=== PATIENT | female | born 1975 | race Caucasian/White ===

== ENCOUNTER 2023-10-21 14:22 | Inpatient (IN) | payer OTHER, SELFPAY ==
[2023-10-21] VITALS (14 sets, daily range): BP systolic 96–117; BP diastolic 60–88; BMI 19.7
--- NOTE | 2023-10-21 11:41 | ED.GENMED ---
History of Present Illness
General
Chief Complaint: Cardiac Symptoms
Source: patient
Time Seen by Provider: 10/21/23 11:17
History of Present Illness
History of Present Illness:
47-year-old female brought to the emergency room for [facility] due to palpitations. Patient states she has been experiencing palpitations for at least a week. Patient has a history of Graves' disease and states that she
has been getting her medication but not at the doses that she believes she has been prescribed in the past. She is taking methimazole 10 mg but believes she should be taking at least 30. Her metoprolol is at 25 mg twice daily. She believes that
there should be higher as well. She also states that she has a history of anemia and has not had an iron transfusion which she currently gets as an outpatient. Mildly short of breath with exertion. No chest pain.
Phy Exam
Physical Exam
Physical Exam:
General: Awake, Alert, Oriented X3. No acute distress.
Vitals: unremarkable
Head: Atraumatic
Eyes: Pupils equal, EOMI
Throat: Airway intact, no exudates
Neck: Trachea midline
Lungs: Clear and equal b/l
Heart: Tachycardic, irregular
Abd: Soft, Nontender, No pulsatile mass
Neuro: Nonfocal
Skin: Warm, dry, no rash
Extremities: pulses equal b/l, no edema
Course
Orders/Labs/Results
Orders:
Orders
10/21/23 11:13
Electrocardiogram (*1) Urgent
Reason for Study: Tachycardia
EKG- Treatment ONCE
10/21/23 11:15
Complete Blood Count/With Diff Urgent
Comprehensive Metabolic Panel Urgent
Folate Urgent
Free T4 Urgent
Iron Urgent
TSH Reflex To Free T4 Urgent
Total Iron Binding Urgent
Troponin I Urgent
Vitamin B12 Urgent
10/21/23 11:40
Add On- LAB Urgent
Tests Added?: tsh reflex t4
Metoprolol [Lopressor] 5 mg IV NOW STA
10/21/23 12:23
Type+Screen Urgent
10/21/23 13:42
Blood Bank Products [* Blood Bank Products] Urgent
Blood Bank Products: *Packed RBC Leuko(PRBC's)
Quantity: 1
Transfuse Today: Yes
Reason: Anemia
10/21/23 14:02
Admit/Transfer Patient As Directed
Co-Sign Provider:
Level of Care: Inpatient admission
Assign to:: Telemetry
Physician / Group: dick
Diagnosis: atrial fib with RVR
Reason for Telemetry: Arrhythmia
Date to Stop Telemetry: 10/24/23
Time to Stop Telemetry: 11:00
Reason for Hospitalization: atrial fib with RVR
Expected length of stay greater than two midnights?: Yes
ELOS- Estimated Length of Stay in days: 3
I certify the patient meets the requirements for IP care: Yes
PRN Pain Medication Management As Directed
May give lesser potent ordered pain med per pt: Yes
preference::
Protocol:: Medication orders for pain may be administered in a
manner that supports deferring to patient preference
when the pt is:
- Requesting an ordered lesser potent pain medication.
Least to most potent pain medications are defined
as: acetaminophen < NSAID < tramadol < opioids
(morphine, oxycodone, hydromorphone).
- Requesting a lesser dose of the same medication IF
ORDERED.
- Requesting a less intrusive route of administration
if both routes are prescribed by the provider (PO <
IV).
10/21/23 14:04
Code Status As Directed
Resuscitation Status: Full Code
10/21/23 14:09
0.9% Sodium Chloride 1000 ml [Nss] 1,000 ml IV BOLUS
10/24/23 11:00
DC Protocol for Telemetry ONCE
Abnormal Lab Results
10/21/23 10/21/23
11:15 12:23
RBC 3.45 L 10^6/uL
(4.20-5.40)
Hgb 7.4 L g/dL
(12.0-16.0)
Hct 25.6 L %
(37.0-47.0)
MCV 74.2 L fL
(81.0-99.0)
MCH 21.4 L pg
(27.0-31.0)
MCHC 28.9 L g/dL
(33.0-37.0)
RDW 19.0 H %
(11.5-14.5)
Chloride 109 H mmol/L
(98-107)
BUN 19 H mg/dl
(7-17)
Glucose 137 H mg/dl
(70-99)
Iron 28 L ug/dl
(37-170)
% Saturation 6 L %
(20-50)
TSH (Reflex) < 0.02 L uIU/ml
(0.47-4.68)
Crossmatch IS Only See Detail
10/21/23 11:15
10/21/23 11:15
Vital Signs
Initial and Last Documented VS:
Initial Vital Signs
Pulse Resp Pulse Ox
133 19 100
10/21/23 11:15 10/21/23 11:15 10/21/23 11:15
Last Documented Vital Signs
Temp Pulse Resp BP Pulse Ox
97.9 F 118 19 102/60 100
10/21/23 14:48 10/21/23 16:04 10/21/23 16:04 10/21/23 15:56 10/21/23 16:04
MDM/Problems Addressed
Differential Diagnosis Includes:
atrial fib, hyperthyriodism, symptomatic anemia
MDM/Problems Addressed:
Patient presents with palpitations. She is found to be in A-fib with rapid ventricular response. This was treated beta-blockers. TSH is very low T4 pending at the time of disposition. Hemoglobin 7.4. Combination of hyperthyroidism and anemia
may have precipitated A-fib. Will transfuse a unit of packed red blood cells. No complaints of bloody or black stool. Patient has longstanding history of iron deficiency anemia related to her gastric bypass surgery and poor iron absorption.
Chronic conditions affecting care: HTN and Other (Graves' disease)
*Pulse Oximetry
Patient hypoxic: no
*EKG
Interpreted by ED Provider?: Yes
Interpretation: abnormal
Heart Rate: 120
Rate: tachycardiac
Rhythm: a-fib
[place]: normal axis
Interval: normal interval
QRS Pattern: normal QRS
Ischemia: non-specific ST changes
*Drapery Hanger Interpretation
Rate: tachycardiac
Interpretation: abnormal
Heart Rate: 120
Rhythm: a-fib
*Critical Care Note
Total Time (30-74mins, 75-104mins- exclusive of procedures): 32 min
comment:
Critical care statement: A total of 32 minutes of critical care time was provided for this patient. This includes management of unstable vital signs, evaluation of the patient at bedside, reviewing the patient's pertinent medical records, discussion
with consultants, review of old EKGs and review of pertinent medical records. This time with separate from time utilized to perform the aforementioned documented procedures
Patient Management
Social determinants of health affecting care: Living situation (Incarcerated)
Discussion with other providers: Hospitalist
ED Attending Note
-
Portions of this chart may have been created with voice recognition software.� Occasional wrong word or��sound alike� substitutions may have occurred due to the inherent limitations of voice recognition software.
Discharge Plan
Departure
Patient Disposition: Admit
Date of Disposition: 10/21/23
Time of Disposition: 13:38
Presentation/result/management discussed w/ accepting MD/DO: Hospitalist
Condition: Fair
Discharge Problem:
New onset a-fib, Symptomatic anemia, Hyperthyroidism
Interventions
Interventions:
*Risk Screen - Suicide Last Done: 10/21/23 11:17
*General Assessment Last Done: 10/21/23 11:17
*Neglect/Abuse Screening Last Done: 10/21/23 11:17
ED- Pulmonary Assessment Last Done: 10/21/23 11:27
ED- Cardiac Assessment Last Done: 10/21/23 11:27
[2023-10-21] MEDS: LOPRESSOR 5 MG IV (11:46)
[2023-10-21 11:52] LABS: % Basophils 0.9 % (0-2); % Eosinophils 2.2 % (0-6); % Immature Granulocytes 0.2 % (0-0.5); % Lymphocytes 33.9 % (20.5-51.1); % Monocytes 8.1 % (1.7-9.3); % Neutrophils 54.7 % (42.2-75.2); Absolute Basophils 0.1 10^3/uL (0-0.2); Absolute Eosinophils 0.1 10^3/uL (0-0.7); Absolute Lymphocytes 1.9 10^3/uL (1.2-3.4); Absolute Monocytes 0.5 10^3/uL (0.1-0.6); Hematocrit 25.6 % (37.0-47.0); Hemoglobin 7.4 g/dL (12.0-16.0); Mean Corp Hgb Conc. 28.9 g/dL (33.0-37.0); Mean Corpuscular Hgb 21.4 pg (27.0-31.0); Mean Corpuscular Volume 74.2 fL (81.0-99.0); Mean Platelet Volume 10.3 fL (7.4-10.4); Nucleated Red Blood Cells % 0 %; Platelet Count 164 10^3/uL (130-400); Red Blood Cell Count 3.45 10^6/uL (4.20-5.40); White Blood Cell Count 5.6 10^3/uL (4.8-10.8)
[2023-10-21 11:58] LABS: ALT (SGPT) 15 U/L (0-35); AST (SGOT) 22 U/L (14-36); Albumin 3.9 g/dl (3.5-5.0); Alkaline Phosphatase 93 U/L (38-126); Blood Urea Nitrogen 19 mg/dl (7-17); Carbon Dioxide 23 mmol/L (22-30); Chloride 109 mmol/L (98-107); Glucose 137 mg/dl (70-99); Potassium 4.6 mmol/L (3.5-5.1); Sodium 139 mmol/L (135-145); Total Bilirubin 0.4 mg/dl (0.2-1.3); Total Protein 6.9 g/dl (6.3-8.2); eGFR > 60.00
[2023-10-21 12:08] LABS: Troponin I < 0.012 ng/ml
[2023-10-21 12:14] LABS: Anisocytosis 1+; Normal RBC Morphology No; Polychromasia 1+
[2023-10-21 12:15] LABS: Hypochromasia 2+; Ovalocytes 1+
[2023-10-21 13:23] LABS: TSH Reflex To Free T4 < 0.02 uIU/ml (0.47-4.68)
--- NOTE | 2023-10-21 13:39 | HPS.HSE ---
Addendum entered and electronically signed by Ruthy Vidales MD 10/21/23 15:05:
pt seen and examined independently--agree with COMMERCIAL ENERGY RATER note
GENERAL: chronically ill appearing, cachectic, appearing older than stated age, female in no apparent distress
HEENT: NC/AT
HEART: irreg irreg tachycardic
LUNGS : clear to auscultation bilaterally
ABDOM: soft, nontender, nondistended, + bowel sounds
EXT: no cyanosis, clubbing---3+ LE edema bilaterally
NEUROLOGIC: grossly intact
: did not examine--pt states has IUD to control heavy menses (no bleeding since IUD placed)
palpitations (presenting c/o)--likely due to paroxysmal atrial fib with RVR (confirmed by EKG)--possibly exacerbated by (what she believes is underdosing of meds at the custodial), Graves's disease and hyperthyroid (free T4 is 1.15), and anemia (HGB
7.4)--Received metoprolol, propranolol in ER--Metoprolol continued--apprec Cardiology consult, ECHO in AM
History of Graves' disease--TSH low, free T4 normal--On methimazole
Iron deficiency anemia--HGB 7.4--blood transfusion ordered--added iron, TIBC, %SAT, ferritin, B12, folate--History of iron transfusions in the past--Ferrous sulfate continued--pt denies black or bloody stools, hematemesis, hemoptysis and no menses
since IUD placed
History of bilateral lower extremity edema---at present her legs are swollen--would check US for DVT for completeness--Continue to monitor
DVT prophylaxis--Lovenox sq
CODE STATUS--Full code
Original Note:
Family Physician
-
Family Physician: Facility [facility]. [facility]
Chief Complaint
-
Palpitation
History of Present Illness
47-year-old female with past medical history for A-fib, Graves' disease, iron deficiency anemia, cellulitis, lower extremities edema presented to us with palpitation for 1 week. Patient stated headache dizzy and weakness. Denied any chest pain or
short of breath. Patient denied any fever, chills. Patient denies any abdominal pain, nausea, vomiting, diarrhea. Patient denies any hematemesis, black stool rectal bleeding. Denies dysuria hematuria. Patient used to have heavy menstrual
bleeding,but she has IUD in place.
Patient was noted in A-fib with RVR. Patient received metoprolol and propranolol in ER. Admitting for further management
History of opiates abuse in the past. She last used in September 13
Medical History
Past Medical History
Past Medical History: Reports Other
Additional Past Medical History:
Atrial fibs
Graves' disease
Iron deficiency anemia
Lower extremities edema
Past Surgical History: Reports Other
Additional Past Surgical History:
Gastric bypass
Social History
Tobacco: Non-smoker
Alcohol: Occasional
Drug: Former User
Living: Penitentiary
Family History
Family History: Not pertinent
Allergies / Home Medications
Allergies reflects when Allergies were last updated in [employer].
Home Medications with original date entered in [employer]
Allergy/Medication List:
Allergies
Allergy/AdvReac Type Severity Reaction Status Date / Time
NSAIDS (Non-Steroidal Allergy Unknown Verified 10/21/23 11:15
Anti-Inflamma
Home Medications
acetaminophen 325 mg tablet 325 mg PO BIDPRN PRN mild pain 10/21/23
albuterol sulfate 2.5 mg/0.5 mL solution for nebulization 5 mg inhalation R QIDPRN PRN sob 10/21/23
cyanocobalamin (vitamin B-12) 1,000 mcg tablet 1,000 mcg PO DAILY 10/21/23
ferrous sulfate 325 mg (65 mg iron) tablet 325 mg PO DAILY 10/21/23
loperamide 2 mg capsule 2 mg PO BIDPRN PRN diarrhea 10/21/23
methimazole 10 mg tablet 10 mg PO BIDPRN PRN thyroid 10/21/23
metoprolol succinate 25 mg tablet,extended release 24 hr 25 mg PO BID 10/21/23
phenylephrine 0.25 %-pramoxine 1 %-glycerin-wh.petrolatum rectal cream (Hemorrhoidal Cream) 1 applic NM BIDPRN PRN hemorrhoids 10/21/23
therapeutic multivitamin 1 tab PO DAILY 10/21/23
Review of Systems
-
Constitutional: Reports No Symptoms
EENT: Reports No Symptoms
Respiratory: Reports No Symptoms
Cardiac: Reports No Symptoms
Abdomen/GI: Reports No Symptoms
: Reports No Symptoms
Musculoskeletal: Reports No Symptoms
Skin: Reports No Symptoms
Neurological: Reports Dizzy and Weakness
Endocrine: Reports No Symptoms
Hematologic/Lymphatic: Reports No Symptoms
Psych: Reports No Symptoms
Physical Exam
Vital Signs
Vital Signs
Temp Pulse Resp BP Pulse Ox
98.8 F 120 22 111/70 100
10/21/23 11:17 10/21/23 13:28 10/21/23 13:28 10/21/23 12:00 10/21/23 13:28
Physical Exam
General: Well Developed, Well Nourished and No Apparent Distress
HEENT: NormoCephalic, Moist mucous membranes and Atraumatic
Respiratory: Clear
Cardiac: Irregular Rhythm and Tachycardia; No Murmur or Rub
GI: Soft, Non Tender, Non Distended and Normal Bowel Sounds; No Organomegaly
Rectal: Deferred by Provider
Musculoskeletal: No Clubbing, No Cyanosis and Other (Lower extremities edema)
Skin: No Rash
Neuro: AO x 3 and Nonfocal/grossly intact
Psych: Calm
Laboratory Results
-
10/21/23 11:15
10/21/23 11:15
Laboratory Results
Total Bilirubin 0.4 mg/dl (0.2-1.3) 10/21/23 11:15
AST 22 U/L (14-36) 10/21/23 11:15
ALT 15 U/L (0-35) 10/21/23 11:15
Alkaline Phosphatase 93 U/L (38-126) 10/21/23 11:15
Troponin I < 0.012 ng/ml 10/21/23 11:15
Data Reviewed
-
Lab Data: Labs Reviewed by me
Impression/Plan
-
#paroxysmal atrial fib.
-EKG A-fib with RVR
-Received metoprolol, propranolol in ER
-Metoprolol continued
-Cardiology consult
# History of Graves' disease
-On methimazole
# Iron deficiency anemia
-Hemoglobin 7.4
-History of iron transfusions in the past
-Patient ordered 1 unit of packed RBCs in the ER
-Monitor hemoglobin in a.m.
-Ferrous sulfate continued
# History of lower extremities edema
-at present her legs are swollen
-Continue to monitor
# DVT prophylaxis
-Lovenox sq
# CODE STATUS
-Full code
[2023-10-21 14:10] LABS: Free T4 1.15 ng/dl (0.78-2.19)
--- NOTE | 2023-10-21 14:18 | CON.CAR ---
Addendum entered and electronically signed by Shree Hartmann MD 10/21/23 16:17:
I saw and examined the patient.
The MACHINE ICER's note was reviewed and I agree with the note.
Comment: 47 y/o female with Graves' disease and iron deficient anemia who is here for evaluation of palpitations for about 1 week. She is seen to be in AFIB with RVR.
- Metoprolol q6Hr for now
- Hopeful that with tx of hyperthyroidism and anemia she converts on her own
- TTE pending
- CHADSVASC of 1, no AC at this point
Original Note:
Consultation
Consultation Request
Date/Time Consultation Requested: 10/21/23 1349
Date/Time Consultation Performed: 10/21/23 1400
Requesting Provider: Dr. Pinedo
Performing Provider: Aurora GRAYSON for Dr. Hartmann
Reason for Consultation: afib
Medical History
-
Chief Complaint: palpitations
History of Present Illness:
47 y/o female with Graves' disease and iron deficient anemia who is here for evaluation of palpitations for about 1 week. She is seen to be in AFIB with RVR. She thinks she has had this before and has a senior cyber security analyst at [facility], but is
not sure of their name. She has been given a dose of IV metoprolol is ordered a dose of PO propranolol in ER. She also reports BLE edema. Lungs are clear. She is in no distress at the time of my assessment.
Past Medical History
Past Medical History: Arrhythmias (thinks she has had afib in past) and Other (anemia)
Social History
Tobacco: Non-Smoker
Alcohol: Occasional
Drug: Other (Percocet, suboxone )
Living: Nursing Home
Family History
Family History: CAD
Allergies / Home Medications
Allergy/AdvReac Type Severity Reaction Status Date / Time
NSAIDS (Non-Steroidal Allergy Unknown Verified 10/21/23 11:15
Anti-Inflamma
�Medication �Instructions �Recorded �Confirmed �Type
acetaminophen 325 mg tablet 325 mg PO BIDPRN PRN mild pain 10/21/23 10/21/23 History
albuterol sulfate 2.5 mg/0.5 mL 5 mg inhalation R QIDPRN PRN sob 10/21/23 10/21/23 History
solution for nebulization
cyanocobalamin (vitamin B-12) 1,000 mcg PO DAILY 10/21/23 10/21/23 History
1,000 mcg tablet
ferrous sulfate 325 mg (65 mg 325 mg PO DAILY 10/21/23 10/21/23 History
iron) tablet
loperamide 2 mg capsule 2 mg PO BIDPRN PRN diarrhea 10/21/23 10/21/23 History
methimazole 10 mg tablet 10 mg PO BIDPRN PRN thyroid 10/21/23 10/21/23 History
metoprolol succinate 25 mg 25 mg PO BID 10/21/23 10/21/23 History
tablet,extended release 24 hr
phenylephrine 0.25 %-pramoxine 1 1 applic MD BIDPRN PRN hemorrhoids 10/21/23 10/21/23 History
%-glycerin-wh.petrolatum rectal
cream (Hemorrhoidal Cream)
therapeutic multivitamin 1 tab PO DAILY 10/21/23 10/21/23 History
Review of Systems
-
History Source: Patient
All other systems: Negative unless noted
Cardiac: Palpitations
Physical Exam
Vital Signs
Temp Pulse Resp BP Pulse Ox
98.8 F 111 21 96/67 100
10/21/23 11:17 10/21/23 14:00 10/21/23 14:00 10/21/23 14:00 10/21/23 14:00
Lab Results
10/21/23 11:15
10/21/23 11:15
Troponin I < 0.012 ng/ml 10/21/23 11:15
Physical Exam
General: Well Developed and No Apparent Distress
HEENT: Normocephalic and Anicteric
Respiratory: Clear
Cardiac: Irregular Rhythm
Musculoskeletal: Edema (mild BLE edema)
Skin: Warm and Dry
Neuro: AO x 3
Psych: Calm
Impression / Plan
-
AFIB with RVR:
-patient thinks she has been diagnosed with this in the past
-on metoprolol 25 mg PO BID as OP- will increase to q 6 as tolerated and monitor
-[id number] score is only 1 for female, so does not need oral anticoagulation at this time
-this diagnosis is in setting of hyperthyroidism, so would treat this per primary team, which will help with arrhythmia issues
-LE edema is noted, lungs clear
-echo in AM
Hyperthyroidism:
-on methimazole
-TSH <0.02, free T4 is pending
-management per primary team
Anemia:
-hx iron deficient anemia- on iron as OP
-getting 1 unit PRBC's
Data Reviewed
-
EKG: Tracing Personally Visualized and interpreted (AFIB with RVR 120 BPM, nonspecific ST and T abnormality)
Medical Tests (Nuc Med, Echo etc): Other (ordered for AM)
Labs: Labs Reviewed by me
[2023-10-21 15:24] LABS: Iron 28 ug/dl (37-170)
[2023-10-21 15:34] LABS: Percent Saturation 6 % (20-50); Total Iron Binding Capacity 435 ug/dl (265-497)
[2023-10-21] MEDS: INDERAL 20 MG PO (15:56)
[2023-10-21 16:32] LABS: Folate 19.9 ng/ml (2.76-20); Vitamin B12 209 pg/ml (239-931)
--- NOTE | 2023-10-21 16:59 | PTCARENOTE ---
Patient arrived from ed to [facility] x3 sandra with patient.
[2023-10-21] MEDS: TAPAZOLE 10 MG PO (19:58)
[2023-10-21] MEDS: LOPRESSOR 25 MG PO ×2 (19:58→23:32)
--- NOTE | 2023-10-21 20:06 | W.PN.UPDATE ---
Update Note
Progress Note Update
reached out to Endocrinology for methimazole dosing. recommended 5mg once a day and repeat TSH with T3,T4 in 4 weeks.
[2023-10-21] MEDS: IMODIUM 2 MG PO (21:12)
[2023-10-21] MEDS: MELATONIN 3 MG PO (23:31)
[2023-10-22] VITALS (21 sets, daily range): BP systolic 61–117; BP diastolic 40–79
[2023-10-22] MEDS: LOPRESSOR 25 MG PO ×3 (06:16→17:39)
[2023-10-22] MEDS: VITAMIN B-12 1000 MCG PO (08:06)
[2023-10-22] MEDS: TAPAZOLE 5 MG PO ×2 (08:06→10:38)
--- NOTE | 2023-10-22 09:27 | W.PN.HOSP.TC ---
Today's Communication/Plan
-
see A/P
Assessment / Plan
Assessment / Plan
HPI: 47-year-old female with past medical history for A-fib, Graves' disease, iron deficiency anemia, cellulitis, lower extremities edema; presented with palpitation for 1 week, with headache, dizziness and weakness.
Patient was noted to be in A-fib with RVR. Patient received metoprolol and propranolol in ER.
History of opiates abuse in the past. She last used in September 13
A/P:
# paroxysmal atrial fib with RVR on admission
EKG A-fib with RVR
Received metoprolol, propranolol in ER
Cont Lopressor 25 mg Q6H
CHADSVASC of 1, no AC at this point
Check TTE
Cardiology consulted
# History of Graves' disease on methimazole
TSH < 0.02, FT4 WNL at 1.15
Increase methimazole to 10 mg daily (she is on 10 mg FILLER WIPER anyway)
recc outpt endo eval
# Iron deficiency anemia
Hemoglobin 7.4 on admission
s/p 1 unit PRBC transfusion in the ER
Monitor hemoglobin
Cont PO Ferrous sulfate
# History of lower extremities edema
US negative for DVT
DVT prophylaxis-Lovenox sq
CODE STATUS-Full code
Anticipated Discharge: 24 - 48 hours
Subjective/Interval History
-
Date of Service: October 22, 2023
Objective Data
-
Labs:
Laboratory Results
10/22/23
06:00
WBC Pending
Hgb Pending
Hct Pending
Plt Count Pending
Sodium Pending
Potassium Pending
Chloride Pending
Carbon Dioxide Pending
BUN Pending
Creatinine Pending
Glucose Pending
Calcium Pending
Vital Signs:
Vital Signs
Temp Pulse Resp BP Pulse Ox
36.6 C 102 18 114/74 100
10/22/23 07:10 10/22/23 07:10 10/22/23 07:10 10/22/23 07:10 10/22/23 07:10
I&O
10/21/23 10/22/23 10/23/23
06:59 06:59 06:59
Intake Total 1450 / 1450
Balance 1450 / 1450
Review of Systems
-
All other systems: Reviewed and negative
Physical Exam
-
General: Well Developed, No Apparent Distress, Comfortable and Conversant; Negative Respiratory Distress
HEENT: Normocephalic, Atraumatic, Nose Appears Normal and Ears Appear Normal; Negative Oxygen
Respiratory: Clear to Auscultation and Non Labored Respirations; Negative Accessory Resp Muscle Use
Cardiac: S1/S2, Irregular Rhythm and Tachycardic
GI: Soft, Nontender, Nondistended and Normal Bowel Sounds
Skin: Warm and Dry
Neuro: Awake and Alert
Psych: Calm and Intact Judgement/Insight
Data Reviewed
-
Labs: Labs Reviewed by me
[2023-10-22 10:12] LABS: Hemoglobin 8.4 g/dL (12.0-16.0); Mean Corp Hgb Conc. 31.1 g/dL (33.0-37.0); Mean Corpuscular Hgb 22.9 pg (27.0-31.0); Mean Corpuscular Volume 73.6 fL (81.0-99.0); Mean Platelet Volume 10.3 fL (7.4-10.4); Platelet Count 160 10^3/uL (130-400); Red Blood Cell Count 3.67 10^6/uL (4.20-5.40); Red Cell Dist. Width 20.8 % (11.5-14.5); White Blood Cell Count 4.9 10^3/uL (4.8-10.8)
[2023-10-22 11:50] LABS: Blood Urea Nitrogen 22 mg/dl (7-17); Calcium 9.2 mg/dl (8.4-10.2); Carbon Dioxide 22 mmol/L (22-30); Chloride 107 mmol/L (98-107); Estimated Creatinine Clearance 91 ml/min; Glucose 176 mg/dl (70-99); HDL Cholesterol 63 mg/dl; LDL Cholesterol, Calculated 69 mg/dl; Potassium 4.5 mmol/L (3.5-5.1); Sodium 136 mmol/L (135-145); Total Cholesterol 141 mg/dl (50-199); Triglyceride 48 mg/dl (10-149); Very Low Density Lipoprotein 9 mg/dl (0-30); eGFR > 60.00
[2023-10-22] MEDS: IMODIUM 2 MG PO (12:04)
--- NOTE | 2023-10-22 14:46 | CM ---
Addendum entered by Williams Borden 10/22/23 14:51:
Per Consult request: AD information delivered to patient.
Addendum entered by Williams Borden 10/22/23 14:50:
No needs at discharge.
Original Note:
Initial assessment completed with patient with 2 corrections officers in room. Patient is currently incarcerated at [facility]. 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 Has a nebulizer machine. No history of psychiatric hospitalizations.
Corrections covers medications and medical care.
--- NOTE | 2023-10-22 16:04 | W.PN.CD ---
Today's Communication / Plan
-
- Start Diltiazem 60 QID along with BB
- Plan for rate control.
Impression / Plan
-
AFIB with RVR:
-patient thinks she has been diagnosed with this in the past
-on metoprolol 25 mg PO q 6 as tolerated and monitor
-High rates noted.
-Will add Diltiazem 60 mg QID and hold if heart rate is < 100 bpm
-[id number] score is only 1 for female, so does not need oral anticoagulation at this time
-this diagnosis is in setting of hyperthyroidism, so would treat this per primary team, which will help with arrhythmia issues
-LE edema is noted, lungs clear
-echo- 10/22/23: LVEF 60%
Hyperthyroidism:
-on methimazole
-TSH <0.02, free T4 is pending
-management per primary team
Anemia:
-hx iron deficient anemia- on iron as OP
-s/p 1 unit PRBC's
- Hgb is 8.4 - responded appropriately.
Physical Exam
Vital Signs/Labs
Vital Signs
Temp Pulse Resp BP Pulse Ox
97.6 F 120 16 117/77 98
10/22/23 11:56 10/22/23 11:56 10/22/23 11:56 10/22/23 11:56 10/22/23 11:56
10/21/23 10/22/23 10/23/23
06:59 06:59 06:59
Actual Weight 49.612 kg
10/22/23 09:59
10/22/23 09:59
Triglycerides 48 mg/dl (10-149) 10/22/23 09:59
LDL Cholesterol, Calc 69 mg/dl 10/22/23 09:59
VLDL Cholesterol, Calc 9 mg/dl (0-30) 10/22/23 09:59
HDL Cholesterol 63 mg/dl 10/22/23 09:59
TSH Cancelled 10/21/23 11:15
Free T4 1.15 ng/dl (0.78-2.19) 10/21/23 11:15
LAB Results
10/21/23
11:15
Troponin I < 0.012
Physical Exam
Constitutional: No acute distress and Comfortable
EENT: Anicteric and Moist mucous membranes
Cardiovascular: Pedal edema is absent, JVD pressure is normal, Rhythm/rate is irregular, Systolic murmur present and S1S2 is normal
Respiratory: Respiratory effort normal, Wheeze Absent and Crackles Absent
GI: Soft and Normal bowel sounds
Neuro/Psych: Alert, Oriented and AO x 3
Data Reviewed
-
Date of Service: October 22, 2023
Medical Decision Making: Reviewed Test Results, Independent Historian Assessment and Test Interpretation
EKG: Tracing Personally Visualized and interpreted
Echo: Report Reviewed by me
Labs: Labs Reviewed by me
Old Records: Reviewed
--- NOTE | 2023-10-22 16:30 | PTCARENOTE ---
Patient HR sustaining in 130s-150s. Pt UAF on tele monitor. made aware PO Lopressor due at 1800, nothing to give her now. ordered IV Lopressor prn. Cardiology to see patient as RN giving IV Lopressor. MD ordered to continue IV Lopressor push
and adding Cardizem PO QID along with PO BB. VSS.
[2023-10-22] MEDS: LOPRESSOR 5 MG IV (16:39)
[2023-10-22] MEDS: CARDIZEM 60 MG PO (17:40)
--- NOTE | 2023-10-22 19:55 | PTCARENOTE ---
Patient having chest pain 7/10 left chest, feeling nauseous. Dagoberto down to 20s. Called RR.
[2023-10-22 19:59] LABS: Glucose - Point of Care 167 mg/dl (70-99)
--- NOTE | 2023-10-22 20:06 | W.PN.UPDATE ---
Update Note
Progress Note Update
Rapid response called at 195 for symptomatic bradycardia. Patient with c/o nausea, left sided chest pain 7/10 described as sharp, short of breath and diaphoretic. Patient with episode of unresponsiveness with bradycardia in 20s during rapid
response, witnessed by rapid response team in room. Atropine administered after palpating pulses. Patient at assessment AAOx3, diaphoretic, c/o of nausea with witnessed small amount of emesis, hypotensive, period of unresponsiveness with
bradycardia. Reviewed with grid molder, Dr. Joiner, who agrees with transfer to ICU for further management.
Plan:
- Transfer to ICU
- STAT Atropine
- STAT Labs CBC w/diff, CMP, Mag, Cardiac enzymes, CK, proBNP
- NSS 500mL Bolus
[2023-10-22] MEDS: NSS 500 IV (20:13)
--- NOTE | 2023-10-22 20:21 | RR ---
A Rapid Response was called on this patient, please see Rapid Response form.
[2023-10-22 20:26] LABS: % Basophils 0.6 % (0-2); % Eosinophils 1.8 % (0-6); % Immature Granulocytes 0.2 % (0-0.5); % Lymphocytes 33.4 % (20.5-51.1); % Monocytes 10.9 % (1.7-9.3); % Neutrophils 53.1 % (42.2-75.2); Absolute Basophils 0.1 10^3/uL (0-0.2); Absolute Eosinophils 0.2 10^3/uL (0-0.7); Absolute Lymphocytes 2.8 10^3/uL (1.2-3.4); Absolute Monocytes 0.9 10^3/uL (0.1-0.6); Absolute Neutrophils 4.4 10^3/uL (1.4-6.5); Hematocrit 26.3 % (37.0-47.0); Hemoglobin 8.1 g/dL (12.0-16.0); Mean Corp Hgb Conc. 30.8 g/dL (33.0-37.0); Mean Corpuscular Hgb 22.6 pg (27.0-31.0); Mean Corpuscular Volume 73.3 fL (81.0-99.0); Mean Platelet Volume 10.6 fL (7.4-10.4); Nucleated Red Blood Cells % 0 %; Platelet Count 190 10^3/uL (130-400); Red Blood Cell Count 3.59 10^6/uL (4.20-5.40); White Blood Cell Count 8.3 10^3/uL (4.8-10.8)
[2023-10-22 20:33] LABS: Lactic Acid 2.7 mmol/L (0.7-2.0)
[2023-10-22 20:35] LABS: ALT (SGPT) 14 U/L (0-35); AST (SGOT) 20 U/L (14-36); Albumin 3.5 g/dl (3.5-5.0); Alkaline Phosphatase 93 U/L (38-126); Blood Urea Nitrogen 32 mg/dl (7-17); Calcium 8.8 mg/dl (8.4-10.2); Carbon Dioxide 16 mmol/L (22-30); Chloride 110 mmol/L (98-107); Estimated Creatinine Clearance 91 ml/min; Glucose 164 mg/dl (70-99); Magnesium 1.9 mg/dl (1.6-2.3); Potassium 4.9 mmol/L (3.5-5.1); Sodium 136 mmol/L (135-145); Total Bilirubin 0.4 mg/dl (0.2-1.3); Total Protein 6.5 g/dl (6.3-8.2); eGFR > 60.00
[2023-10-22 20:36] LABS: Creatine Phosphokinase 29 U/L (30-135)
[2023-10-22] MEDS: ADRENALIN 250 IV (20:44)
[2023-10-22 20:45] LABS: NT-proBNP 1810 pg/ml; Troponin I < 0.012 ng/ml
[2023-10-22] MEDS: CALCIUM GLUCONATE 100 IV (20:56)
--- NOTE | 2023-10-22 22:32 | PTCARENOTE ---
Pt. arrived to ICU approx. 2119 due to RR called.
Pt. was given IV lopressor, oral lopressor approx 1 hour later, and just started on diltiazem.
HR dropped to 20s, MAP in 40s, decreased mentation. During rapid, pt. dropped to 20s again, MAP in 40s, became unresponsive.
Pulse was present upon palpation, atropine given, mentation improved shortly after. decision to admit ICU by house MATERIALS SPECIALIST.
Upon arrival to ICU pt. started on EPI 5 mcg, and given 2g Calc Glu.
AAOx4, no neurological deficits noted.
AFIB w.o RVR, hypotensive, Normothermic.
Normal urine OP, bowel sounds present, pt offers no complaints of pain at this time.
[2023-10-23] VITALS (43 sets, daily range): BP systolic 88–118; BP diastolic 56–90; BMI 20.9
--- NOTE | 2023-10-23 00:04 | PTCARENOTE ---
Pt. remains on EPI gtt, titrating down as appropriate. Currently on 4mcg.
Assessment unchanged from prior.
[2023-10-23] MEDS: LOPRESSOR PO ×2 (00:05→06:09)
[2023-10-23 04:24] LABS: Hematocrit 22.6 % (37.0-47.0); Hemoglobin 7.1 g/dL (12.0-16.0); Mean Corp Hgb Conc. 31.4 g/dL (33.0-37.0); Mean Corpuscular Hgb 22.5 pg (27.0-31.0); Mean Corpuscular Volume 71.7 fL (81.0-99.0); Mean Platelet Volume 10.4 fL (7.4-10.4); Platelet Count 158 10^3/uL (130-400); Red Blood Cell Count 3.15 10^6/uL (4.20-5.40); Red Cell Dist. Width 20.9 % (11.5-14.5); White Blood Cell Count 6.6 10^3/uL (4.8-10.8)
[2023-10-23 04:27] LABS: INR 1.25; PT 15.6 Sec (11.4-14.6)
[2023-10-23 04:41] LABS: Blood Urea Nitrogen 30 mg/dl (7-17); Calcium 8.9 mg/dl (8.4-10.2); Carbon Dioxide 22 mmol/L (22-30); Chloride 107 mmol/L (98-107); Estimated Creatinine Clearance 91 ml/min; Glucose 83 mg/dl (70-99); Potassium 4.8 mmol/L (3.5-5.1); Sodium 136 mmol/L (135-145); eGFR > 60.00
--- NOTE | 2023-10-23 05:11 | PTCARENOTE ---
EPI gtt off.
Now normotensive. Remains in afib. no changes in mentation.
--- NOTE | 2023-10-23 05:59 | CON.INTV ---
Consultation
Consultation Request
Date/Time Consultation Requested: 10/22
Date/Time Consultation Performed: 10/22
Reason for Consultation: Critical care
Medical History
-
History of Present Illness:
Most history obtained from the chart and the patient. She presently is comfortable. 47-year-old female with history of Graves' disease, anemia presents to [facility] with palpitations 10/21/2023. She was being treated for hyperthyroidism as
outpatient. Upon arrival she pulse 133, breathing at 19, 100% saturation. She was found to be in atrial fibrillation, anemic. She was given a transfusion and admitted to the hospital for further workup. She developed episode of bradycardia
following calcium channel natanael/beta-natanael therapy with associated chest pain, heart rate in the 20s to 30s. She was given a dose of epinephrine with improvement. She was subsequently transferred to the ICU, required epinephrine drip
overnight. She was comfortable this morning when I evaluated her.. We are asked to help from critical care standpoint
Of note, she has been in the current senior living for 2 weeks, had gained 20 pounds. The prior gel she was at since September 13, she had lost 20 pounds. Normally she lives with her brother in [place]
.
PMH: Graves' disease being treated for hyperthyroidism, iron deficiency anemia, new onset atrial fibrillation October 2023, chronic opioid addiction/Percocet, history of lower extremity cellulitis in the past. History of gastric bypass surgery in
the past
Past Medical History
Past Medical History: None (See above)
Past Surgical History: None (See above)
Social History
Tobacco: Non-smoker
Alcohol: Occasional
Drug: Former User (Addicted to Percocet)
Living: With Family (Lives with her brother in [place], has been in correction since September 14, 2023) and Care Home
Employment: Not Employed
Family History
Family History: Other (4 children healthy. 2 brothers healthy. Mother from coronary disease in the sixth decade)
Allergies / Home Medications
Allergies
Allergy/AdvReac Type Severity Reaction Status Date / Time
NSAIDS (Non-Steroidal Allergy Unknown Verified 10/21/23 11:15
Anti-Inflamma
Home Medications
�Medication �Instructions �Recorded �Confirmed �Last Taken �Type
acetaminophen 325 mg tablet 325 mg PO BIDPRN PRN mild pain 10/21/23 10/21/23 Unknown History
albuterol sulfate 2.5 mg/0.5 mL 5 mg inhalation R QIDPRN PRN sob 10/21/23 10/21/23 Unknown History
solution for nebulization
cyanocobalamin (vitamin B-12) 1,000 mcg PO DAILY Supplement 10/21/23 10/21/23 Unknown History
1,000 mcg tablet
ferrous sulfate 325 mg (65 mg 325 mg PO DAILY Supplement 10/21/23 10/21/23 Unknown History
iron) tablet
loperamide 2 mg capsule 2 mg PO BIDPRN PRN diarrhea 10/21/23 10/21/23 Unknown History
methimazole 10 mg tablet 10 mg PO BIDPRN PRN thyroid 10/21/23 10/21/23 Unknown History
metoprolol succinate 25 mg 25 mg PO BID Blood Pressure 10/21/23 10/21/23 Unknown History
tablet,extended release 24 hr
phenylephrine 0.25 %-pramoxine 1 1 applic MD BIDPRN PRN hemorrhoids 10/21/23 10/21/23 Unknown History
%-glycerin-wh.petrolatum rectal
cream (Hemorrhoidal Cream)
therapeutic multivitamin 1 tab PO DAILY Supplement 10/21/23 10/21/23 Unknown History
Review of Systems
-
Unable to Obtain full review of systems at this time due to: Patient Non Verbal (Not cooperative with questioning)
All other systems: Negative unless noted
Vitals / Labs / Diagnostic Testing
Vital Signs
Temp Pulse Resp BP Pulse Ox
98.0 F 82 15 100/61 100
10/23/23 03:19 10/23/23 04:30 10/23/23 04:30 10/23/23 04:30 10/23/23 04:30
Lab Data
10/23/23 03:53
10/23/23 03:53
Laboratory Results
10/23/23
03:52
PT 15.6 H
INR 1.25
APTT 31.0
Diagnostic Testing:
Physical Exam
-
HEENT: Normocephalic, Anicteric and Other (Cachectic in appearance)
Cardiovascular: S1/S2, Regular Rhythm (Tachycardic), Murmur (n), Rub (n) and Peripheral Edema (n)
Respiratory: Wheeze (n), Rales (n) and Rhonchi (n)
GI: Soft, Non Distended and Non Tender
Neurology: Awake and Alert
Skin: Other (Multiple tattoos) and Other (Scattered tattoos)
General: Comfortable (On room air)
Assessment
-
47-year-old female with history of Graves' disease being treated for hyperthyroidism, anemia who presents with palpitations, found to have new onset atrial fibrillation. She was started on calcium channel natanael therapy, beta-natanael therapy
developed bradycardia with symptoms requiring epinephrine, transferred to ICU 10/22/2023. We are asked to help from critical care standpoint
Symptomatic bradycardia
Chest pain, shortness of breath, diaphoresis
Unresponsiveness
Responded to atropine, epinephrine
Tx to 10/21
Atrial fibrillation with rapid ventricular response
Admitted 10/20
History of Graves' disease
On methimazole
Iron deficiency anemia
Status post transfusion
Chronic lower extremity edema
History of gastric bypass surgery
Chronic opioid dependence
Addicted to Percocet according to patient
Prisoner
Plan/recommendations
At this time, patient appears to be comfortable. Later in the morning after eating breakfast she developed right-sided chest discomfort, pleuritic in nature
She thinks she ate too fast.
Chest exam is clear. Chest x-ray this morning is normal
Presently heart rate in the 120s
She is asking for pain medication. Her last Percocet was September 13, prior to being imprisoned
Moving forward
Has been weaned off epinephrine drip overnight. Discussed with stock car driver DISPATCH ASSOCIATE earlier this a.m.
Plan to continue with rate control therapy with hold parameters. Currently on Lopressor 25 mg every 6 hours
Avoid beta agonist therapy
Cardiology wants to avoid calcium channel natanael at this time
Pleurisy noted. Patient states that occurred after she ate her breakfast. She thinks she ate too fast
She is asking for pain medication
Protonix, Maalox now
Tylenol for pain
It would be difficult to provide narcotic therapy at this time
Doppler study negative for DVT
Follow symptoms
Differential also includes thromboembolic disease
Patient states she is ambulatory in the present. She denies any history of blood clots
Continue treatment for hyperthyroidism
DVT prophylaxis: Remains on Lovenox
Cardiology following
Reviewed with critical care nursing, primary service, cardiology
TCCT 31
--- NOTE | 2023-10-23 07:38 | W.PN.HOSP.TC ---
Today's Communication/Plan
-
see A/P
Assessment / Plan
Assessment / Plan
HPI: 47-year-old female with past medical history for A-fib, Graves' disease, iron deficiency anemia, cellulitis, lower extremities edema; presented with palpitation for 1 week, with headache, dizziness and weakness.
Patient was noted to be in A-fib with RVR. Patient received metoprolol and propranolol in ER.
History of opiates abuse in the past. She last used in September 13
A/P:
# paroxysmal atrial fib with RVR on admission
# Symptomatic bradycardia and PUMP HOUSE TECHNICIAN called 10/20
# Likely Tachybrady syndrome
Admission EKG with A-fib with RVR
Received metoprolol, propranolol in ER
Cont Lopressor 25 mg Q6H (with holding parameter). Stopped further PRN IV Lopressor with symptomatic bradycardia
CHADSVASC of 1, no AC at this point
Echo unrevealing: Normal biventricular size and systolic function without regional wall motion abnormality. No significant valvular disease.
s/p atropine for bradycardia
transfer to IVU from ICU
Cardiology on board
# History of Graves' disease on methimazole
TSH < 0.02, FT4 WNL at 1.15
Cont methimazole at 10 mg daily
recc outpt endo eval
# Iron deficiency anemia
s/p 1 unit PRBC transfusion in the ER
Hgb today 7.1, will transfuse second unit PRBC
Start IV iron in place of oral Ferrous sulfate
Monitor hemoglobin
# History of lower extremities edema
US negative for DVT
DVT prophylaxis-Lovenox sq
CODE STATUS-Full code
DW RN
DW Tap Out Operator
DAVID Card
total time spent 51 min
Anticipated Discharge: > 48 hours
Subjective/Interval History
-
Date of Service: October 23, 2023
Objective Data
-
Labs:
Laboratory Results
10/22/23 10/23/23 10/23/23
20:15 03:52 03:53
WBC 8.3 6.6
Hgb 8.1 L 7.1 L
Hct 26.3 L 22.6 L
Plt Count 190 158
PT 15.6 H
INR 1.25
APTT 31.0
Sodium 136 136
Potassium 4.9 4.8
Chloride 110 H 107
Carbon Dioxide 16 L 22
BUN 32 H 30 H
Creatinine 0.6 0.6
Glucose 164 H 83
Calcium 8.8 8.9
Total Bilirubin 0.4
AST 20
ALT 14
Alkaline Phosphatase 93
Vital Signs:
Vital Signs
Temp Pulse Resp BP Pulse Ox
36.7 C 90 38 90/62 98
10/23/23 07:00 10/23/23 06:00 10/23/23 06:00 10/23/23 06:00 10/23/23 06:00
I&O
10/22/23 10/23/23 10/24/23
06:59 06:59 06:59
Intake Total 1450 / 1450 2101.6 / 2101.6
Output Total 1265 / 1265
Balance 1450 / 1450 836.6 / 836.6
Review of Systems
-
All other systems: Reviewed and negative
Physical Exam
-
General: Well Developed, No Apparent Distress, Comfortable and Conversant; Negative Respiratory Distress
HEENT: Normocephalic, Atraumatic, Nose Appears Normal and Ears Appear Normal; Negative Oxygen
Respiratory: Clear to Auscultation and Non Labored Respirations; Negative Accessory Resp Muscle Use
Cardiac: S1/S2 and Irregular Rhythm
GI: Soft, Nontender, Nondistended and Normal Bowel Sounds
Skin: Warm and Dry
Neuro: Awake and Alert
Psych: Calm and Intact Judgement/Insight
Data Reviewed
-
Medical Tests (Nuc Med, Echo etc): Report Reviewed by me (echo)
Labs: Labs Reviewed by me
[2023-10-23] MEDS: TAPAZOLE 10 MG PO (08:36)
--- NOTE | 2023-10-23 08:50 | PTCARENOTE ---
Assumed care of pt at 0715 following shift report. Pt resting quietly in bed, Rt ankle shackled to bed- skin intact and w/o noted redness or irritation. Two guards present in room. Pt on RA w/ POx 99%. No complaints offered. Physical assessment
competed as documented. Pt using hospital phone to call and order breakfast. At 0827 pt rang call flores and c/o new onset sharp, non-radiating Lt sided chest pain, rates 8/10. States 'maybe I ate too fast'. Denies SOB w/ POx 98%. O2 reapplied at
2l/min at pt request. BP 117/79. Pt remains in AFib w/ HR 110-140's. Skin w/d, color pale. EKG completed and Dr Bird notified of pt complaint via TT. Dr Bird to bedside to assess pt. Dr Rosenberg updated w/ pt complaint and assessment
findings. New orders received.
[2023-10-23] MEDS: LOPRESSOR 25 MG PO ×3 (08:55→23:34)
[2023-10-23] MEDS: PROTONIX IV 40 MG IV (08:56)
[2023-10-23] MEDS: MAALOX 30 ML PO (08:56)
[2023-10-23] MEDS: VITAMIN B-12 1000 MCG PO (08:57)
[2023-10-23] MEDS: NSS (PRESERVATIVE FREE) 10 ML IV (08:57)
--- NOTE | 2023-10-23 09:00 | W.PN.CD ---
Today's Communication / Plan
-
continue po metoprolol 25 q6
no more ccb or iv lopressor
accept imperfect hr control for now
consider radha/dccv wednesday
d/w Dr Rosenberg at the bedside, [facility] nursing and Dr Horton
CCT at the bedside and in acute care with tachyarrhythmia was 31 minutes.
Impression / Plan
-
AFIB with RVR:
-in the setting of hyperthyroidism
-patient thinks she has been diagnosed with this in the past
-she had a bradycardia after 5mg IV lopressor then po 25mg and 60mg of diltiazem
-now back to rvr
-will continue with metoprolol 25 mg PO q 6 as tolerated and monitor
-will need to accepted imperfect control given bradycardia
-if still rapid will need to trial a radha/dccv on Wednesday
-[id number] score is only 1 for female, so does not need oral anticoagulation at this time
-this diagnosis is in setting of hyperthyroidism, so would treat this per primary team, which will help with arrhythmia issues
-echo- 10/22/23: LVEF 60%
Symptomatic bradycardia:
-in the setting of high dose AVN blockade
-back to rvr
-no indication for ppn
-no further ccb avoid iv lopressor
Hyperthyroidism:
-on methimazole
-TSH <0.02, free T4 is pending
-management per primary team
CP:
-sharp, pleuritic, worse with eating
-ecg without ischemic change
-requesting pain medication other than NSAID
-will defer to medicine
-trop negative, CXR normal
-anemia is likely adding to issues
Anemia:
-hx iron deficient anemia- on iron as OP
-down to 7.1 again agree with transfusion
Subjective:
8/10 sharp cp in the center of chest that is worse with eating and inspiration
Physical Exam
Vital Signs/Labs
Vital Signs
Temp Pulse Resp BP Pulse Ox
98.0 F 112 38 105/90 98
10/23/23 07:00 10/23/23 08:55 10/23/23 06:00 10/23/23 08:55 10/23/23 06:00
10/22/23 10/23/23 10/24/23
06:59 06:59 06:59
Actual Weight 49.612 kg 51.8 kg
10/23/23 03:53
10/23/23 03:53
PT 15.6 Sec (11.4-14.6) H 10/23/23 03:52
INR 1.25 10/23/23 03:52
APTT 31.0 Sec (23.4-35.0) 10/23/23 03:52
Magnesium 1.9 mg/dl (1.6-2.3) 10/22/23 20:15
Triglycerides 48 mg/dl (10-149) 10/22/23 09:59
LDL Cholesterol, Calc 69 mg/dl 10/22/23 09:59
VLDL Cholesterol, Calc 9 mg/dl (0-30) 10/22/23 09:59
HDL Cholesterol 63 mg/dl 10/22/23 09:59
TSH Cancelled 10/21/23 11:15
Free T4 1.15 ng/dl (0.78-2.19) 10/21/23 11:15
10/22/23 10/22/23
20:05 20:15
Ukq-T-Wyyyezuwlqk Pept Cancelled 1809
LAB Results
10/21/23 10/22/23
11:15 20:15
Troponin I < 0.012 < 0.012
Physical Exam
Constitutional: No acute distress
Cardiovascular: Pedal edema is absent, JVD pressure is normal and Rhythm/rate is irregular
Respiratory: Respiratory effort normal, Lungs clear to auscul., Wheeze Absent, Crackles Absent and Rhonchi Absent
Neuro/Psych: AO x 3
Data Reviewed
-
Date of Service: October 23, 2023
Medical Decision Making: Review of Case with other Provider (tele afib with rvr)
X-Ray/CT/US/MRI/NUC/PET: Report Reviewed by me (cxr no acute abnormality)
--- NOTE | 2023-10-23 09:40 | PTCARENOTE ---
Pt woken for assessment prior to administration of ordered PRBC. When questioned about chest discomfort, pt stated 'Oh, that went away awhile ago'. VSS. Pt on RA w/ POx 99%. PRBC transfusion started.
--- NOTE | 2023-10-23 09:57 | W.PN.UPDATE ---
Update Note
Progress Note Update
Patient reevaluated after this morning of complaints of pleurisy, 10/22
Presently sleeping, comfortable, respiratory rate improved, heart rate improved. Did not receive any narcotic therapy
Received Maalox/Protonix
Continue with plans as below
Would like to avoid narcotic therapy given opioid addiction
For transfer to IVU
We will sign off. Please call with questions
--- NOTE | 2023-10-23 10:46 | PTCARENOTE ---
Pt to transfer to IVU, Rm [id number]. Report given to 'Ruthy CHO'. Will transfer pt once unit PRBC completed. No changes from previous assessment findings. Call flores remains w/in pt reach and safe environment maintained.
--- NOTE | 2023-10-23 11:40 | PTCARENOTE ---
Pt encouraged to complete AM hygiene including partial bath, gown change and brushing teeth. Pt refused, stating 'I'll do it later. I just woke up.'. When this RN continued to encourage pt to complete AM hygiene prior to transfer, pt stated 'you
can't make me'
[2023-10-23] MEDS: IMODIUM 2 MG PO (13:09)
--- NOTE | 2023-10-23 13:15 | PTCARENOTE ---
Assumed care of pt upon tsf from ICU. Pt arrives in room with 2 police officers as she is presently incarcerated. VSS, CM shows AF 120, POX 96%, She denies any pain or discomfort at this time. Imodium given as per MAR for loose stool. Avinash
D/C'd. MRSA swab positive, pt placed on CP as per protocol.
[2023-10-23] MEDS: FERRLECIT 110 MG IV (15:36)
[2023-10-23] MEDS: TYLENOL 650 MG PO (15:47)
--- NOTE | 2023-10-23 19:38 | PTCARENOTE ---
Received patient for the night in bed with two guards at bedside. Patient with left ankle secured to bed by handcuffs. Assessment completed. A fib on the monitor with heart rates in the 120s to 150s. Blood pressure 106/66. Patient denies shortness
of breath or palpitations at this time. Call flores within reach.
[2023-10-24] VITALS (7 sets, daily range): BP systolic 101–127; BP diastolic 68–85
[2023-10-24] MEDS: IMODIUM 2 MG PO (01:26)
--- NOTE | 2023-10-24 05:28 | PTCARENOTE ---
Patient up most of the night. Calling staff frequently for meals and fluids. No complaints of pain. Patient remains A fib on telemetry. Heart rate in the low 100s after midnight Lopressor.
[2023-10-24] MEDS: LOPRESSOR 25 MG PO ×2 (06:31→10:23)
[2023-10-24 06:58] LABS: Hematocrit 29.5 % (37.0-47.0); Hemoglobin 9.3 g/dL (12.0-16.0); Mean Corp Hgb Conc. 31.5 g/dL (33.0-37.0); Mean Corpuscular Hgb 23.5 pg (27.0-31.0); Mean Corpuscular Volume 74.5 fL (81.0-99.0); Mean Platelet Volume 11.1 fL (7.4-10.4); Platelet Count 155 10^3/uL (130-400); Red Blood Cell Count 3.96 10^6/uL (4.20-5.40); Red Cell Dist. Width 21.2 % (11.5-14.5); White Blood Cell Count 6.8 10^3/uL (4.8-10.8)
[2023-10-24 07:09] LABS: Blood Urea Nitrogen 22 mg/dl (7-17); Carbon Dioxide 24 mmol/L (22-30); Chloride 110 mmol/L (98-107); Estimated Creatinine Clearance 92 ml/min; Glucose 95 mg/dl (70-99); Potassium 4.7 mmol/L (3.5-5.1); Sodium 138 mmol/L (135-145); eGFR > 60.00
[2023-10-24] MEDS: VITAMIN B-12 1000 MCG PO (08:02)
[2023-10-24] MEDS: TAPAZOLE 10 MG PO (08:02)
--- NOTE | 2023-10-24 08:04 | W.PN.HOSP.TC ---
Addendum entered and electronically signed by Amanda Horton MD 10/24/23 12:50:
AXR noted Mild to moderate colonic stool burden, which indicates that the patient is experiencing overflow diarrhea.
Would stop Imodium, restart bowel regimen with MiraLAX and Senokot-S x 3 days. Continue PRN Dulcolax.
Original Note:
Today's Communication/Plan
-
see A/P
Assessment / Plan
Assessment / Plan
HPI: 47-year-old female with past medical history for A-fib, Graves' disease, iron deficiency anemia, cellulitis, lower extremities edema; presented with palpitation for 1 week, with headache, dizziness and weakness.
Patient was noted to be in A-fib with RVR. Patient received metoprolol and propranolol in ER.
History of opiates abuse in the past. She last used in September 13
A/P:
# paroxysmal atrial fib with RVR on admission
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
Admission EKG with A-fib with RVR
Received metoprolol, propranolol in ER
Cont Lopressor 25 mg Q6H (with holding parameter). Stopped further PRN IV Lopressor with symptomatic bradycardia
CHADSVASC of 1, no AC at this point
Echo unrevealing: Normal biventricular size and systolic function without regional wall motion abnormality. No significant valvular disease.
s/p atropine for bradycardia
transfer to IVU from ICU
Cardiology on board, with plan for POWER/DCCV Tuesday 10/24
# diarrhea ongoing for 1 week per pt
Check stool studies with C diff, Norovirus, stool culture
Imodium ordered per pt request
noted BM regimen ordered previously, indicating previous constipation, could this be overflow diarrhea?
Check AXR and if large stool burden noted, would stop Imodium and restart bowel regimen
# History of Graves' disease on methimazole
TSH < 0.02, FT4 WNL at 1.15
Cont methimazole at 10 mg daily
recc outpt endo eval
# Iron deficiency anemia
s/p 2 units PRBC transfusion
Cont IV iron in place of oral Ferrous sulfate
Monitor hemoglobin
# History of lower extremities edema
US negative for DVT
DVT prophylaxis-Lovenox sq
CODE STATUS-Full code
DW RN
Anticipated Discharge: > 48 hours
Subjective/Interval History
-
Date of Service: October 24, 2023
Objective Data
-
Labs:
Laboratory Results
10/24/23
06:35
WBC 6.8
Hgb 9.3 L D
Hct 29.5 L
Plt Count 155
Sodium 138
Potassium 4.7
Chloride 110 H
Carbon Dioxide 24
BUN 22 H
Creatinine 0.5 L
Glucose 95
Calcium 9.0
Vital Signs:
Vital Signs
Temp Pulse Resp BP Pulse Ox
36.7 C 120 18 127/85 98
10/23/23 23:03 10/24/23 06:31 10/23/23 23:03 10/24/23 06:31 10/23/23 23:03
I&O
10/23/23 10/24/23 10/25/23
06:59 06:59 06:59
Intake Total 2101.6 / 2101.6 840 / 840
Output Total 1265 / 1265 800 / 800
Balance 836.6 / 836.6 40 / 40
Review of Systems
-
All other systems: Reviewed and negative
Abdomen/GI: Reports Diarrhea
Physical Exam
-
General: Well Developed, No Apparent Distress, Comfortable and Conversant; Negative Respiratory Distress
HEENT: Normocephalic, Atraumatic, Nose Appears Normal and Ears Appear Normal; Negative Oxygen
Respiratory: Clear to Auscultation and Non Labored Respirations; Negative Accessory Resp Muscle Use
Cardiac: S1/S2, Irregular Rhythm and Tachycardic
GI: Soft, Nontender, Nondistended and Normal Bowel Sounds
Skin: Warm and Dry
Neuro: Awake and Alert
Psych: Calm and Intact Judgement/Insight
Data Reviewed
-
Medical Tests (Nuc Med, Echo etc): Report Reviewed by me (echo)
Labs: Labs Reviewed by me
--- NOTE | 2023-10-24 09:10 | W.PN.CD ---
Today's Communication / Plan
-
increase metoprolol to 50 q 6 and monitor on tele.
will not persue radha/dccv
Impression / Plan
-
AFIB with RVR:
-in the setting of hyperthyroidism
-patient thinks she has been diagnosed with this in the past
-she had a bradycardia after 5mg IV lopressor then po 25mg and 60mg of diltiazem
-now back to rvr
-will increaese with metoprolol 50 mg PO q 6 as tolerated and monitor
-will need to accepted imperfect control given bradycardia
-offered radha/dccv on Wednesday-->she will not take post cardioversion DOAC while in residential as she feels it is unsafe since they don't listen to her compliant. She would be will to upon release because she could then call 911 with an issue
-she has struggled with tachycardia with hyperthyroid in the past and thinks it will all get better as thyroid gets better
-[id number] score is only 1 for female, so does not need oral anticoagulation at this time
-this diagnosis is in setting of hyperthyroidism, so would treat this per primary team, which will help with arrhythmia issues
-echo- 10/22/23: LVEF 60%
Symptomatic bradycardia:
-in the setting of high dose AVN blockade
-back to rvr
-no indication for ppm
-no further ccb avoid iv lopressor
Hyperthyroidism:
-on methimazole
-TSH <0.02, free T4 is pending
-management per primary team
CP:
-resolved today
-ecg without ischemic change
-requesting pain medication other than NSAID
-will defer to medicine
-trop negative, CXR normal
-anemia is likely adding to issues
Anemia:
-hx iron deficient anemia- on iron as OP
-down to 7.1 now up to 9.3 s/p transfusion
Subjective:
she denies chest pain, per nurse c/o diarrhea
Physical Exam
Vital Signs/Labs
Vital Signs
Temp Pulse Resp BP Pulse Ox
97.9 F 120 18 127/85 97
10/24/23 07:46 10/24/23 06:31 10/24/23 07:46 10/24/23 06:31 10/24/23 07:46
10/23/23 10/24/23 10/25/23
06:59 06:59 06:59
Actual Weight 51.8 kg 49.5 kg
10/24/23 06:35
10/24/23 06:35
PT 15.6 Sec (11.4-14.6) H 10/23/23 03:52
INR 1.25 10/23/23 03:52
APTT 31.0 Sec (23.4-35.0) 10/23/23 03:52
Magnesium 1.9 mg/dl (1.6-2.3) 10/22/23 20:15
Triglycerides 48 mg/dl (10-149) 10/22/23 09:59
LDL Cholesterol, Calc 69 mg/dl 10/22/23 09:59
VLDL Cholesterol, Calc 9 mg/dl (0-30) 10/22/23 09:59
HDL Cholesterol 63 mg/dl 10/22/23 09:59
TSH Cancelled 10/21/23 11:15
Free T4 1.15 ng/dl (0.78-2.19) 10/21/23 11:15
10/22/23 10/22/23
20:05 20:15
Gek-F-[id number] Pept Cancelled 1809
LAB Results
10/21/23 10/22/23
11:15 20:15
Troponin I < 0.012 < 0.012
Physical Exam
Constitutional: No acute distress
Cardiovascular: Pedal edema is absent, JVD pressure is normal, Systolic murmur absent, Diastolic murmur absent and Rhythm/rate is irregular
Respiratory: Respiratory effort normal, Lungs clear to auscul., Wheeze Absent, Crackles Absent and Rhonchi Absent
Neuro/Psych: AO x 3
Data Reviewed
-
Date of Service: October 24, 2023
EKG: Other (tele af with rvr)
[2023-10-24] MEDS: LOPRESSOR 50 MG PO ×2 (12:33→17:02)
[2023-10-24] MEDS: FERRLECIT 110 MG IV (13:18)
[2023-10-24] MEDS: MIRALAX 17 GRAMS PO (13:18)
--- NOTE | 2023-10-24 17:05 | PTCARENOTE ---
pt continues to be aflutter on the monitor, hr [id number], vss. pt offers no complaints at this time. pt is resting in bed comfortably. pt educated on plan of care for the evening and pt verbalized understanding. call flores within reach.
[2023-10-24] MEDS: SENOKOT-S 1 TABLET PO (19:30)
--- NOTE | 2023-10-24 19:57 | PTCARENOTE ---
Received patient for the night with two guards at bedside. A fib on the monitor. Heart rate in the 100s-110s. Patient has a STAT order for hemorrhoid cream but wants to wait until after she has a bowel movement to use it. Call flores within reach.
[2023-10-25 00:01] VITALS: BP 94/64
[2023-10-25] MEDS: LOPRESSOR PO (00:23)
--- NOTE | 2023-10-25 02:42 | PTCARENOTE ---
Midnight Lopressor dose held due to blood pressure 94/64, outside of parameters. HR 120s. Afib on the monitor.
[2023-10-25 04:06] VITALS: BP 103/83
[2023-10-25 04:58] VITALS: BP 106/75
[2023-10-25] MEDS: LOPRESSOR 50 MG PO ×2 (04:59→11:21)
[2023-10-25 05:11] LABS: Blood Urea Nitrogen 21 mg/dl (7-17); Calcium 8.8 mg/dl (8.4-10.2); Carbon Dioxide 25 mmol/L (22-30); Chloride 109 mmol/L (98-107); Estimated Creatinine Clearance 91 ml/min; Glucose 94 mg/dl (70-99); Potassium 4.3 mmol/L (3.5-5.1); Sodium 137 mmol/L (135-145); eGFR > 60.00
--- NOTE | 2023-10-25 05:13 | PTCARENOTE ---
Pt's heart rate elevated 140-150 afib while in bed. am Lopressor given. B/p 106/75
[2023-10-25 05:17] LABS: Hematocrit 30.9 % (37.0-47.0); Hemoglobin 9.5 g/dL (12.0-16.0); Mean Corp Hgb Conc. 30.7 g/dL (33.0-37.0); Mean Corpuscular Hgb 23.6 pg (27.0-31.0); Mean Corpuscular Volume 76.9 fL (81.0-99.0); Mean Platelet Volume 11.1 fL (7.4-10.4); Platelet Count 178 10^3/uL (130-400); Red Blood Cell Count 4.02 10^6/uL (4.20-5.40); White Blood Cell Count 8.1 10^3/uL (4.8-10.8)
[2023-10-25 07:44] VITALS: BP 101/71
--- NOTE | 2023-10-25 07:52 | W.PN.CD ---
Today's Communication / Plan
-
- Refuse any further addition of rate control
- No further recommendations
Impression / Plan
-
AFIB with RVR:
-hx of hyperthyroidism - FT4 is normal. On Methamizole.
-patient thinks she has been diagnosed with this in the past
-she had a bradycardia after 5mg IV lopressor then po 25mg and 60mg of diltiazem
-now back to rvr
-now on metoprolol 50 mg PO q 6 - with still RVR.
-With Metoporlol alone unable to keep RVR in controlled rate, addition of Diltiazem - may be 30 bid was suggested. Patient is not interested in addition of second drug. (Dilt of digoxin).
-Patient is asympotmatic with her RVR and is not interested in controlling her rate any further.
-Refused chronic anticoagulation/
-Refused cardioversion
-Can increase Metoporlol as needed, otherwise no further recommendations
-[id number] score is only 1 for female, so does not need oral anticoagulation at this time
-echo- 10/22/23: LVEF 60%
Symptomatic bradycardia:
-in the setting of high dose AVN blockade
-back to rvr
-no indication for ppm
-no further ccb avoid iv lopressor
Hyperthyroidism:
-on methimazole
-TSH <0.02, free T4 is pending
-management per primary team
CP:
-resolved today
-ecg without ischemic change
-requesting pain medication other than NSAID
-will defer to medicine
-trop negative, CXR normal
-anemia is likely adding to issues
Anemia:
-hx iron deficient anemia- on iron as OP
-down to 7.1 now up to 9.3 s/p transfusion
Subjective:
she denies chest pain, per nurse c/o diarrhea
Physical Exam
Vital Signs/Labs
Vital Signs
Temp Pulse Resp BP Pulse Ox
98.6 F 127 20 106/75 99
10/25/23 07:41 10/25/23 04:59 10/25/23 07:41 10/25/23 04:59 10/25/23 07:41
10/24/23 10/25/23 10/26/23
06:59 06:59 06:59
Actual Weight 49.5 kg
10/25/23 04:11
10/25/23 04:11
PT 15.6 Sec (11.4-14.6) H 10/23/23 03:52
INR 1.25 10/23/23 03:52
APTT 31.0 Sec (23.4-35.0) 10/23/23 03:52
Magnesium 1.9 mg/dl (1.6-2.3) 10/22/23 20:15
Triglycerides 48 mg/dl (10-149) 10/22/23 09:59
LDL Cholesterol, Calc 69 mg/dl 10/22/23 09:59
VLDL Cholesterol, Calc 9 mg/dl (0-30) 10/22/23 09:59
HDL Cholesterol 63 mg/dl 10/22/23 09:59
TSH Cancelled 10/21/23 11:15
Free T4 1.15 ng/dl (0.78-2.19) 10/21/23 11:15
10/22/23 10/22/23
20:05 20:15
[id number] Pept Cancelled 1809
LAB Results
10/22/23
20:15
Troponin I < 0.012
Physical Exam
Constitutional: No acute distress and Comfortable
EENT: Anicteric and Moist mucous membranes
Cardiovascular: JVD pressure is normal and Rhythm/rate is irregular
Respiratory: Respiratory effort normal, Crackles Absent and Rhonchi Absent
GI: Soft, Normal bowel sounds and Distention present
Neuro/Psych: Alert, Oriented and AO x 3
Data Reviewed
-
Date of Service: October 25, 2023
Medical Decision Making: Reviewed Test Results, Independent Historian Assessment and Test Interpretation
EKG: Tracing Personally Visualized and interpreted
Echo: Report Reviewed by me
Labs: Labs Reviewed by me
Old Records: Reviewed
[2023-10-25] MEDS: MIRALAX PO (07:53)
[2023-10-25] MEDS: TAPAZOLE 10 MG PO (07:58)
[2023-10-25] MEDS: VITAMIN B-12 1000 MCG PO (07:58)
[2023-10-25] MEDS: SENOKOT-S 1 TABLET PO (07:58)
--- NOTE | 2023-10-25 09:57 | PTCARENOTE ---
Assumed care of pt from night RN. Pt received awake and alert, Ox2. @ police officers in room as pt is incarcerated. VSS, CM shows AF 120's, POX 94% on RA. She is refusing POWER/Echo as doesn't want to be put on anticoagulants. (Feels that the
detention will not dose her correctly.)
--- NOTE | 2023-10-25 11:01 | W.PN.HOSP.TC ---
Today's Communication/Plan
-
d/c to halfway
Assessment / Plan
Assessment / Plan
HPI: 47-year-old female with past medical history for A-fib, Graves' disease, iron deficiency anemia, cellulitis, lower extremities edema; presented with palpitation for 1 week, with headache, dizziness and weakness.
Patient was noted to be in A-fib with RVR. Patient received metoprolol and propranolol in ER.
History of opiates abuse in the past. She last used in September 13
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 Stopped further PRN IV Lopressor with symptomatic bradycardia--CHADSVASC of 1, no AC at this
point--Echo unrevealing: Normal biventricular size and systolic function without regional wall motion abnormality. No significant valvular disease--s/p atropine for bradycardia--Cardiology on board, with plan for POWER/DCCV Tuesday 10/24--pt refused
diarrhea ongoing for 1 week per pt --Negative stool studies with C diff, Norovirus, stool culture --Imodium ordered per pt request--noted BM regimen ordered previously, indicating previous constipation, could this be overflow diarrhea?
History of Graves' disease on methimazole--TSH < 0.02, FT4 WNL at 1.15--Cont methimazole at 10 mg daily--recc outpt endo eval
Iron deficiency anemia--s/p 2 units PRBC transfusion --Cont IV iron in place of oral Ferrous sulfate --Monitor hemoglobin
History of lower extremities edema--US negative for DVT
DVT prophylaxis-Lovenox sq
CODE STATUS-Full code
d/c
Anticipated Discharge: Today
Subjective/Interval History
-
Date of Service: October 25, 2023
pt refusing further cardiac interventions
Objective Data
-
Labs:
Laboratory Results
10/25/23
04:11
WBC 8.1
Hgb 9.5 L
Hct 30.9 L
Plt Count 178
Sodium 137
Potassium 4.3
Chloride 109 H
Carbon Dioxide 25
BUN 21 H
Creatinine 0.5 L
Glucose 94
Calcium 8.8
Vital Signs:
max temp for 24 hours
10/25/23
07:41
Temp 98.6 F
Vital Signs
Temp Pulse Resp BP Pulse Ox
98.6 F 126 20 101/71 99
10/25/23 07:41 10/25/23 07:44 10/25/23 07:41 10/25/23 07:44 10/25/23 09:52
I&O
10/24/23 10/25/23 10/26/23
06:59 06:59 06:59
Intake Total 840 / 840 480 / 480
Output Total 800 / 800
Balance 40 / 40 480 / 480
Review of Systems
-
All other systems: Reviewed and negative
Physical Exam
-
General: Appears Chronically Ill and Cachectic
HEENT: Normocephalic and Atraumatic
Respiratory: Clear to Auscultation; Negative Wheezes or Rhonchi
Cardiac: Irregular Rhythm and Tachycardic; Negative Murmur
GI: Soft, Nontender, Nondistended and Normal Bowel Sounds
Musculoskeletal: No Clubbing, No Cyanosis and No Edema
Neuro: Awake
[2023-10-25 11:02] VITALS: BP 104/76
--- NOTE | 2023-10-25 12:10 | CM ---
Reviewed chart. Telephone call to [facility] to review and discuss discharge plans. Ms. Sales is ready for transfer back to [facility] today. [facility] can accept back today. Medical work-up in progress. The discharge plan is to return to [facility] when medically
stable.
--- NOTE | 2023-10-25 12:53 | PTCARENOTE ---
All D/C info reviewed with pt, all questions answered. [facility].
--- NOTE | 2023-10-25 14:26 | W.DCSUMMARY ---
Discharge Summary
Discharge Data
Date of Admission: 10/21/23
Date of Discharge: 10/25/23
-
Pending Results: No
Hospital Course
Primary care physician : [facility]
Principal Discharge diagnosis : Paroxysmal atrial fibrillation with rapid ventricular response followed by symptomatic bradycardia with rapid response, diarrhea
Chronic Discharge diagnosis : Graves' disease, iron deficiency anemia, history of lower extremity edema
Hospital Course : Patient was a 47-year-old female with a past medical history significant for paroxysmal atrial fibrillation and Graves' disease who presented with palpitations for 1 week. Patient stated she had a headache, felt dizzy, and was
weak. She denied chest pain or shortness of breath. She denied fevers or chills. Patient states that she used to have heavy menstrual bleeding but she has had none since an IUD was in place. Patient received metoprolol and propranolol in the
emergency department. Patient was admitted.
Problem #1: Paroxysmal atrial fibrillation with rapid ventricular response followed by symptomatic bradycardia with rapid response. Patient is started on a Cardizem drip and seen in consultation by cardiology. Lopressor 25 mg every 6 hours with
holding parameters were given but patient did have symptomatic bradycardia requiring a rapid response and transferred to the intensive care unit. Patient was given stat atropine, and a 500 mL fluid bolus. Diltiazem was stopped and metoprolol was
continued. Patient was not started on anticoagulation at patient's request. Plans were for POWER with cardioversion on 10/25/2023 but the patient has also refused that as well. She is of the belief that if her thyroid numbers come back into a
controlled range that her heart rate will also improve. She is willing to follow-up with cardiology as an outpatient but is unwilling at this time to undergo cardioversion and/or a second medication to control heart rate.
Problem #2: Diarrhea. Abdominal x-ray showed significant stool. This is likely overflow diarrhea. Stool studies were checked and were all negative.
Problem #3: All other medical issues. These include Graves' disease, iron deficiency anemia, history of lower extremity edema. These medical issues were stable during her hospitalization. Medications were continued as able. In regards to her
Graves' disease. TSH was low at less than 0.02, free T4 was within normal limits. Patient was continued on methimazole 10 mg daily and should follow-up with an senior business manager as outpatient. She will need repeat thyroid function tests done in
approximately 3 to 4 weeks. In addition, this could be contributing to the paroxysmal atrial fibrillation with rapid response.
Patient is stable for discharge back to the detention at this time. If there are any questions regarding this dictation or her hospital stay, please do not hesitate to call. Our office number is [phone].
Time for discharge 31 minutes.
Procedure findings :
ECHOCARDIOGRAM CONCLUSIONS:
Normal biventricular size and systolic function without regional wall motion
abnormality.
No significant valvular disease.
No prior study available for comparison.
Discharge Plan
-
Patient Disposition: Senior Care
Discharge Diagnosis/Procedures: Paroxysmal atrial fibrillation with rapid ventricular response followed by symptomatic bradycardia, overflow diarrhea due to constipation, history of Graves' disease, iron deficiency anemia, lower extremity edema
Condition: Fair
Diet: As tolerated
Activity: As tolerated
Driving Restrictions: As prior to admission
Bathing Restrictions: None
Referrals:
[place] [Family Provider] - in less than 1 week
Claribel Elena MD [Consulting Staff] - (or any endocrine, if interested in following up as outpt)
Juana Silverio MD [Active] -
(if interested as outpt
)
Prescriptions:
New
metoprolol tartrate 25 mg Tablet
50 mg PO Q6 Qty: 60 0RF
polyethylene glycol 3350 [HealthyLax] 17 gram Powder In Packet
17 g PO DAILY Qty: 0 0RF
sennosides-docusate sodium 8.6-50 mg Tablet
1 tab PO BID Qty: 0 0RF
bisacodyl 10 mg Suppository
10 mg SD [id number] PRN (Reason: constipation) Qty: 0 0RF
methimazole 5 mg Tablet
10 mg PO DAILY Qty: 30 0RF
Continued
acetaminophen 325 mg Tablet
325 mg PO BIDPRN PRN (Reason: mild pain)
cyanocobalamin (vitamin B-12) 1,000 mcg Tablet
1,000 mcg PO DAILY
therapeutic multivitamin Tablet
1 tab PO DAILY
ferrous sulfate 325 mg (65 mg iron) Tablet
325 mg PO DAILY
albuterol sulfate 2.5 mg/0.5 mL Solution For Nebulization
5 mg INHALATION R QIDPRN PRN (Reason: sob)
Hemorrhoidal Cream 0.25-1 % Cream
1 applic SD BIDPRN PRN (Reason: hemorrhoids)
Discontinued
loperamide 2 mg Capsule
2 mg PO BIDPRN PRN (Reason: diarrhea)
metoprolol succinate 25 mg Tablet Extended Release 24 Hr
25 mg PO BID
methimazole 10 mg Tablet
10 mg PO BIDPRN PRN (Reason: thyroid)
Discharge Orders:
Discharge Patient (As Directed); Ordered 10/25/23
Ordered By: Ruthy Vidales
Care Plan Goals
Care Plan Goals:
Problem: Readiness for enhanced knowledge related to diagnosis and treatment plan
Goal: Understand your diagnosis and treatment plan needs, including medications if applicable.
Instructions: Know your diagnosis, underlying causes and treatment plan options, including medications if applicable. Consult with your health care team to learn about your diagnosis and treatment plan, including medications if applicable.
Discharge Date and Time
Discharge Date/Time: 10/25/23 13:06
Print Language: BULGARIAN
== END 2023-10-25 13:06 | DRG 310 ==
LOC: IVU 14:22
PROVIDERS: Internal Medicine; Nurse Practitioner Family; Nurse Practitioner Primary Care; Physician Assistant; Registered Nurse; ADMITTING PHYSICIAN Internal Medicine; CONSULT PHYSICIAN Internal Medicine Cardiovascular Disease; CONSULT PHYSICIAN Internal Medicine Critical Care Medicine; EMERGENCY PHYSICIAN Emergency Medicine
DX: I48.0 Paroxysmal atrial fibrillation (principal); R00.1 Bradycardia, unspecified; R19.7 Diarrhea, unspecified; D50.9 Iron deficiency anemia, unspecified; E05.00 Thyrotoxicosis with diffuse goiter without thyrotoxic crisis or storm; K59.00 Constipation, unspecified; Z79.899 Other long term (current) drug therapy
CPT/HCPCS: 71045; 74018; 80048; 80053; 80061; 82550; 82607; 82728; 82746; 82962; 83540; 83550; 83605; 83735; 83880; 84439; 84443; 84484; 85025; 85027; 85610; 85730; 86850; 86900; 86901; 86920; 87045; 87046; 87070; 87147; 87324; 87427; 87449; 87798; 93005; 93306; 93970; 96374; 99291; J2916; P9016